=== PATIENT | male | born 1990 | race Caucasian/White ===

== ENCOUNTER → 2017-10-02 | Outpatient (CLI) | payer BC ==
--- NOTE | 2017-10-02 10:27 | CT ---
EXAMINATION TYPE: CT thoracic spine wo con DATE OF EXAM: 10/02/2017 COMPARISON: NONE HISTORY: Compression fracture CT DLP: 1260 mGycm Automated exposure control for dose reduction was used. FINDINGS: There is a compression deformity of T8 with approximately 30% loss of anterior vertebral stephanie dy height. No posterior wall displacement is evident. Findings appear to be old. No adjacent soft tis gabriela swelling is evident. There is slight exaggeration of thoracic kyphosis at this compression deform ity level. No focal disc herniations or significant disc bulge is evident. No spinal canal stenosis is evident. Incidental note is made of a consolidation and patchy infiltrate within the posterior medial right mi dlung. Correlate for an infectious etiology. Underlying mass is not excluded and follow-up to [facility] is recommended. IMPRESSION: 1. COMPRESSION DEFORMITY T8. MINIMAL SUPERIOR ENDPLATE COMPRESSION OF T9 MAY BE PRESENT. NO POSTERIOR WALL DISPLACEMENT OR SPINAL CANAL STENOSIS IS EVIDENT. FINDINGS APPEAR OLD. 2. PULMONARY INFILTRATE VERSUS UNDERLYING MASS POSTERIOR RIGHT LUNG. FOLLOW-UP EXAM IS RECOMMENDED.
== END | disposition home or self-care (01) ==
LOC: RADCTMAIN 08:07
PROVIDERS: ATTEND Family Medicine
DX: S22.060A Wedge compression fracture of T7-T8 vertebra, initial encounter for closed fracture (principal)
CPT/HCPCS: 72128

== ENCOUNTER → 2018-05-07 | Outpatient (CLI) | payer OTHER ==
--- NOTE | 2018-05-07 08:14 | CT ---
EXAMINATION TYPE: CT chest wo/w con DATE OF EXAM: 05/07/2018 COMPARISON: CT thoracic spine October 02, 2017 HISTORY: Swelling/mass/lump in neck per order. Prior abnormal CT per patient. CT DLP: 303.3 mGycm. Automated Exposure Control for Dose Reduction was Utilized. TECHNIQUE: CT scan of the thorax is performed following without and with IV Contrast, patient inject ed with 100 mL of Isovue 300. FINDINGS: LUNGS: There is interval resolution of nodular consolidation involving the superior aspect right lowe r lobe. No residual nodules or nodular consolidation is identified. Both lungs are currently clear wi thout pleural effusion or pneumothorax seen. Tracheobronchial tree is patent. MEDIASTINUM: There are no greater than 1 cm hilar or mediastinal lymph nodes. No cardiomegaly or si gnificant pericardial effusion is seen. OTHER: Nodular bilateral subareolar gynecomastia is incidentally seen. There is persistent exaggerate d thoracic kyphosis with mild to borderline moderate compression fractures and vacuum disc phenomenon with mild to moderate multilevel disc space narrowing from T4 through T9 level in the thoracic spine redemonstrated with most prominent height loss noted at T7 vertebra. No significant change from prio r CT thoracic spine study. No suspicious enhancement is noted. IMPRESSION: 1. Interval resolution of superior right lower lobe nodular consolidation. No residual nodules or mas ses.
== END | disposition home or self-care (01) ==
LOC: RADCTMAIN 06:42
PROVIDERS: ATTEND Psychiatry & Neurology Neurology
DX: R22.2 Localized swelling, mass and lump, trunk (principal)
CPT/HCPCS: 71270; Q9967

== ENCOUNTER 2019-02-04 10:42 | Emergency (ER) | payer OTHER ==
[2019-02-04 10:54] VITALS: BP 148/88; PULSE 93; RESP 18; TEMP 97.5
[2019-02-04] MEDS ORDERED: ACET/COD 300 MG/30 MG STARTER PACK 6 TAB BTL PO STA (11:20)
--- NOTE | 2019-02-04 11:20 | ED ---
ENT HPI - General Chief complaint: Dental/Oral Stated complaint: dental pain Source: patient Mode of arrival: ambulatory Limitations: no limitations - History of Present Illness Initial comments: 28-year-old male presents with right lower dental pain. Patient states it began this morning. Patient states he is concerned dental infection. Patient states he does have carious teeth in that area that have been filled. Patient denies any facial swelling just slightly below tongue denies fever flu like symptoms. Patient states he cannot tolerate the pain remaining review of systems negative. Upon arrival patient appears well no signs of acute distress. Denies a difficulty swallowing or breathing. - Related Data Home Medications Medication Instructions Recorded Confirmed Dextroamphetamine/Amphetamine 20 mg PO DAILY 02/04/19 02/04/19 [Adderall] clonazePAM [KlonoPIN] 0.5 mg PO BID PRN 02/04/19 02/04/19 Previous Rx's Medication Instructions Recorded Clindamycin [Cleocin] 450 mg PO Q8H 7 Days #63 capsule 02/04/19 Allergies Allergy/AdvReac Type Severity Reaction Status Date / Time venom-honey bee Allergy Swelling Verified 02/04/19 11:13 [bee venom (honey bee)] STEROID Allergy Swelling Uncoded 02/04/19 11:13 Review of Systems ROS Statement: Those systems with pertinent positive or pertinent negative responses have been documented in the HPI. ROS Other: All systems not noted in ROS Statement are negative. Past Medical History Past Medical History: No Reported History Additional Past Medical History / Comment(s): back pain History of Any Multi-Drug Resistant Organisms: None Reported Past Surgical History: Adenoidectomy, Tonsillectomy Additional Past Surgical History / Comment(s): BACK FRACTURE Past Psychological History: PTSD Smoking Status: Current every day smoker Past Alcohol Use History: None Reported Past Drug Use History: Marijuana General Exam - General Exam Comments Initial Comments: General: The patient is awake and alert, in no distress, and does not appear acutely ill. Eye: Pupils are equal, round and reactive to light, extra-ocular movements are intact. No nystagmus. There is normal conjunctiva bilaterally. No signs of icterus. Ears, nose, mouth and throat: There are moist mucous membranes and no oral lesions. Tender to percussion tooth #31 fluctuant abscess. Multiple carious teeth. No swelling below tongue or tenderness to palpation below tongue. No swelling below the angle of the mandible of the face. Cardiovascular: There is a regular rate and rhythm. No murmur, rub or gallop is appreciated. Respiratory: Lungs are clear to auscultation, respirations are non-labored, breath sounds are equal. No wheezes, stridor, rales, or rhonchi. Musculoskeletal: Normal ROM, no tenderness. Strength 5/5. Sensation intact. Pulses equal bilaterally 2+. Neurological: A&O x 3. CN II-XII intact grossly, There are no obvious motor or sensory deficits. Coordination appears grossly intact. Speech is normal. Skin: Skin is warm and dry and no rashes or lesions are noted. Psychiatric: Cooperative, appropriate mood & affect, normal judgment. Limitations: no limitations Course Vital Signs 02/04/19 02/04/19 10:49 11:37 Temperature 97.5 F L 97.5 F L Pulse Rate 93 93 Respiratory 18 18 Rate Blood Pressure 148/88 148/88 O2 Sat by Pulse 99 99 Oximetry Medical Decision Making - Medical Decision Making 1-year-old male presenting for dental pain. Patient be treated with antibiotics given starter pack for Tylenol No. 3 for pain management. Patient is instructed to follow-up with a dentist for extraction of the tooth. Patient is agreeable to plan. Return parameters discussed patient discharged. While discussed the case by attending provider Dr. Fisher. Disposition Clinical Impression: Pain, dental Disposition: HOME SELF-CARE Condition: Good Instructions (If sedation given, give patient instructions): Dental Abscess (ED) Additional Instructions: Please use medication as discussed. Please follow-up with dentist for extraction of tooth within next week. Please return to emergency room if the symptoms increase or worsen or for any other concerns, swelling below tongue swelling of the jaw or neck fevers like symptoms.. Prescriptions: Clindamycin [Cleocin] 450 mg PO Q8H 7 Days #63 capsule Is patient prescribed a controlled substance at d/c from ED?: No Referrals: Joseph Bey MD [Primary Care Provider] - 1-2 days Time of Disposition: :19
== END 2019-02-04 11:38 | disposition home or self-care (01) ==
LOC: EC 10:42
DX: K08.89 Other specified disorders of teeth and supporting structures (principal); K02.9 Dental caries, unspecified; F17.200 Nicotine dependence, unspecified, uncomplicated; Z79.899 Other long term (current) drug therapy; Z91.030 Bee allergy status; Z88.8 Allergy status to other drugs, medicaments and biological substances
CPT/HCPCS: 99282

== ENCOUNTER 2019-05-13 15:38 | Emergency (ER) | payer OTHER ==
[2019-05-13] MEDS ORDERED: KETOROLAC 30 MG/ML 1 ML VIAL IVP STA (16:28)
[2019-05-13] MEDS ORDERED: ONDANSETRON 4 MG/2 ML VIAL IVP STA (16:28)
[2019-05-13] MEDS ORDERED: SODIUM CHLORIDE 0.9% 1,000 ML IV STA (16:28)
[2019-05-13] MEDS ORDERED: MORPHINE SULFATE 4 MG/ML SYRINGE IV STA (16:28)
[2019-05-13 17:03] LABS: Basophils # (A) 0.1 k/uL (0-0.2); Basophils % (A) 1 %; Eosinophils # (A) 0.1 k/uL (0-0.7); Eosinophils % (A) 1 %; HCT 47.2 % (39.0-53.0); Lymphocytes # (A) 1.3 k/uL (1.0-4.8); Lymphocytes % (A) 8 %; MCH 32.8 pg (25.0-35.0); MCHC 33.9 g/dL (31.0-37.0); Monocytes # (A) 0.7 k/uL (0-1.0); Monocytes % (A) 4 %; Neutrophils # (A) 13.9 k/uL (1.3-7.7); Neutrophils % (A) 86 %; Platelet Count 299 k/uL (150-450); RBC 4.86 m/uL (4.30-5.90); WBC 16.1 k/uL (3.8-10.6)
--- NOTE | 2019-05-13 17:06 | ED ---
Abdominal Pain HPI - General Chief Complaint: Abdominal Pain Stated Complaint: severe pain on right side Time Seen by Provider: 05/13/19 16:17 Source: patient Mode of arrival: ambulatory Limitations: no limitations - History of Present Illness Initial Comments: Patient is a 29-year-old male presenting to emergency Department with complaints of a sudden onset right sided abdominal pain that started about 5 hours prior to arrival. Patient states he started having right lower quadrant pain and the pain has just been increasing over the past few hours. He states his pain when he moves around. He describes the pain as very sharp, 10/10, nonradiating. He states this is the worst pain is ever had in his abdomen. He denies history of abdominal surgeries, history of kidney stones. He states he had a normal bowel movement and urination today. He denies fever, nausea, vomiting, diarrhea. He denies cough or shortness of breath. Before onset of abdominal pain, he felt his normal self. He has no other pertinent past medical history and takes no medications. He denies any trauma. He has no other complaints at this time. Upon arrival to ER, his vital signs are stable. - Related Data Home Medications Medication Instructions Recorded Confirmed Dextroamphetamine/Amphetamine 20 mg PO DAILY 02/04/19 02/04/19 [Adderall] clonazePAM [KlonoPIN] 0.5 mg PO BID PRN 02/04/19 02/04/19 Previous Rx's Medication Instructions Recorded Clindamycin [Cleocin] 450 mg PO Q8H 7 Days #63 capsule 02/04/19 Ketorolac [Toradol] 10 mg PO Q8HR #15 tab 05/13/19 Ondansetron Odt [Zofran Odt] 4 mg PO Q8HR PRN #10 tab 05/13/19 Tamsulosin [Flomax] 0.4 mg PO DAILY #7 cap 05/13/19 Allergies Allergy/AdvReac Type Severity Reaction Status Date / Time venom-honey bee Allergy Swelling Verified 05/13/19 15:45 [bee venom (honey bee)] STEROID Allergy Swelling Uncoded 05/13/19 15:45 Review of Systems ROS Statement: Those systems with pertinent positive or pertinent negative responses have been documented in the HPI. ROS Other: All systems not noted in ROS Statement are negative. Past Medical History Past Medical History: No Reported History Additional Past Medical History / Comment(s): back pain History of Any Multi-Drug Resistant Organisms: None Reported Past Surgical History: Adenoidectomy, Tonsillectomy Additional Past Surgical History / Comment(s): BACK FRACTURE Past Psychological History: PTSD Smoking Status: Current every day smoker Past Alcohol Use History: None Reported Past Drug Use History: Marijuana General Exam - General Exam Comments Initial Comments: GENERAL: Patient appears pale, in mild distress secondary to pain. HEAD: Atraumatic, normocephalic. EYES: Pupils equal round and reactive to light, extraocular movements intact, sclera anicteric, conjunctiva are normal. ENT: TMs normal, nares patent, oropharynx clear without exudates. Moist mucous membranes. NECK: Normal range of motion, supple without lymphadenopathy or JVD. LUNGS: Breath sounds clear to auscultation bilaterally and equal. No wheezes rales or rhonchi. HEART: Regular rate and rhythm without murmurs, rubs or gallops. ABDOMEN: Severe tenderness to palpation in the right lower quadrant, positive guarding, positive rebound. Normoactive bowel sounds. No masses appreciated. : Deferred EXTREMITIES: Normal range of motion, no pitting or edema. No clubbing or cyanosis. NEUROLOGICAL: Normal speech, normal gait. PSYCH: Normal mood, normal affect. SKIN: Warm, Dry, normal turgor, no rashes or lesions noted. Limitations: no limitations Course Vital Signs 05/13/19 05/13/19 05/13/19 15:45 17:47 18:54 Temperature 97.5 F L 98.2 F Pulse Rate 85 79 81 Respiratory 18 18 16 Rate Blood Pressure 124/80 131/86 126/86 O2 Sat by Pulse 100 100 100 Oximetry Medical Decision Making - Medical Decision Making Patient is a 29-year-old male presenting with acute onset right lower quadrant pain for the past 6 hours. Vital signs are stable. Patient does have severe right lower side tenderness, positive rebound, positive guarding. No history of abdominal surgeries. Laboratory reveals slight leukocytosis at 16.1, likely reactive. Lactic acid is normal at 1.2. Urine shows a large amount of blood, no signs of infection. Computed tomography scan shows no acute abnormalities. She was given fluids, pain control. I discussed the findings with the patient. This is most likely a right-sided renal stone, appendicitis less likely. Patient will be given Toradol, Zofran, Flomax to go home with. He is in ag reement with this plan of care. Strict return parameters were discussed with the patient he verbalizes understanding. Case discussed with Dr. Fisher. - Lab Data Result diagrams: 05/13/19 16:47 05/13/19 16:47 Lab Results 05/13/19 05/13/19 05/13/19 Range/Units 16:47 16:47 16:47 WBC 16.1 H (3.8-10.6) k/uL RBC 4.86 (4.30-5.90) m/uL Hgb 16.0 (13.0-17.5) gm/dL Hct 47.2 (39.0-53.0) % MCV 97.0 (80.0-100.0) fL MCH 32.8 (25.0-35.0) pg MCHC 33.9 (31.0-37.0) g/dL RDW 12.0 (11.5-15.5) % Plt Count 299 (150-450) k/uL Neutrophils % 86 % Lymphocytes % 8 % Monocytes % 4 % Eosinophils % 1 % Basophils % 1 % Neutrophils # 13.9 H (1.3-7.7) k/uL Lymphocytes # 1.3 (1.0-4.8) k/uL Monocytes # 0.7 (0-1.0) k/uL Eosinophils # 0.1 (0-0.7) k/uL Basophils # 0.1 (0-0.2) k/uL Sodium 140 (137-145) mmol/L Potassium 4.2 (3.5-5.1) mmol/L Chloride 105 (98-107) mmol/L Carbon Dioxide 27 (22-30) mmol/L Anion Gap 8 mmol/L BUN 14 (9-20) mg/dL Creatinine 0.92 (0.66-1.25) mg/dL Est GFR (CKD-EPI)AfAm >90 (>60 ml/min/1.73 sqM) Est GFR (CKD-EPI)NonAf >90 (>60 ml/min/1.73 sqM) Glucose 140 H (74-99) mg/dL Plasma Lactic Acid Ifeanyi 1.2 (0.7-2.0) mmol/L Calcium 9.7 (8.4-10.2) mg/dL Total Bilirubin 0.4 (0.2-1.3) mg/dL AST 31 (17-59) U/L ALT 43 (4-49) U/L Alkaline Phosphatase 45 (38-126) U/L Total Protein 7.6 (6.3-8.2) g/dL Albumin 4.8 (3.5-5.0) g/dL Amylase 53 (30-110) U/L Lipase 35 (23-300) U/L Urine Color Urine Appearance (Clear) Urine pH (5.0-8.0) Ur Specific Buckner (1.001-1.035) Urine Protein (Negative) Urine Glucose (UA) (Negative) Urine Ketones (Negative) Urine Blood (Negative) Urine Nitrite (Negative) Urine Bilirubin (Negative) Urine Urobilinogen (<2.0) mg/dL Ur Leukocyte Esterase (Negative) Urine RBC (0-5) /hpf Urine WBC (0-5) /hpf Urine Mucus (None) /hpf 05/13/19 Range/Units 16:47 WBC (3.8-10.6) k/uL RBC (4.30-5.90) m/uL Hgb (13.0-17.5) gm/dL Hct (39.0-53.0) % MCV (80.0-100.0) fL MCH (25.0-35.0) pg MCHC (31.0-37.0) g/dL RDW (11.5-15.5) % Plt Count (150-450) k/uL Neutrophils % % Lymphocytes % % Monocytes % % Eosinophils % % Basophils % % Neutrophils # (1.3-7.7) k/uL Lymphocytes # (1.0-4.8) k/uL Monocytes # (0-1.0) k/uL Eosinophils # (0-0.7) k/uL Basophils # (0-0.2) k/uL Sodium (137-145) mmol/L Potassium (3.5-5.1) mmol/L Chloride (98-107) mmol/L Carbon Dioxide (22-30) mmol/L Anion Gap mmol/L BUN (9-20) mg/dL Creatinine (0.66-1.25) mg/dL Est GFR (CKD-EPI)AfAm (>60 ml/min/1.73 sqM) Est GFR (CKD-EPI)NonAf (>60 ml/min/1.73 sqM) Glucose (74-99) mg/dL Plasma Lactic Acid Ifeanyi (0.7-2.0) mmol/L Calcium (8.4-10.2) mg/dL Total Bilirubin (0.2-1.3) mg/dL AST (17-59) U/L ALT (4-49) U/L Alkaline Phosphatase (38-126) U/L Total Protein (6.3-8.2) g/dL Albumin (3.5-5.0) g/dL Amylase (30-110) U/L Lipase (23-300) U/L Urine Color Yellow Urine Appearance Clear (Clear) Urine pH 6.5 (5.0-8.0) Ur Specific Buckner 1.029 (1.001-1.035) Urine Protein 1+ H (Negative) Urine Glucose (UA) Negative (Negative) Urine Ketones Trace H (Negative) Urine Blood Large H (Negative) Urine Nitrite Negative (Negative) Urine Bilirubin Negative (Negative) Urine Urobilinogen 2.0 (<2.0) mg/dL Ur Leukocyte Esterase Small H (Negative) Urine RBC >182 H (0-5) /hpf Urine WBC 1 (0-5) /hpf Urine Mucus Few H (None) /hpf Disposition Clinical Impression: Abdominal pain, Right ureteral calculus Disposition: HOME SELF-CARE Condition: Stable Instructions (If sedation given, give patient instructions): Kidney Stones (ED) Additional Instructions: Please return to the Emergency Department if symptoms worsen or any other concerns. Take medications as prescribed. Follow up with PCP. Prescriptions: Tamsulosin [Flomax] 0.4 mg PO DAILY #7 cap Ketorolac [Toradol] 10 mg PO Q8HR #15 tab Ondansetron Odt [Zofran Odt] 4 mg PO Q8HR PRN #10 tab PRN Reason: Nausea Is patient prescribed a controlled substance at d/c from ED?: No Referrals: Joseph Bey MD [Primary Care Provider] - 1-2 days
[2019-05-13 17:22] LABS: ALT 43 U/L (4-49); AST 31 U/L (17-59); African American GFR (CKD) >90 (>60 ml/min/1.73 sqM); Albumin 4.8 g/dL (3.5-5.0); Alkaline Phosphatase 45 U/L (38-126); Amylase 53 U/L (30-110); Anion Gap 8 mmol/L; Blood Urea Nitrogen 14 mg/dL (9-20); Calcium 9.7 mg/dL (8.4-10.2); Carbon Dioxide 27 mmol/L (22-30); Chloride 105 mmol/L (98-107); Glucose 140 mg/dL (74-99); Non-African American GFR(CKD) >90 (>60 ml/min/1.73 sqM); Potassium 4.2 mmol/L (3.5-5.1); Sodium 140 mmol/L (137-145); Total Bilirubin 0.4 mg/dL (0.2-1.3); Total Protein 7.6 g/dL (6.3-8.2)
[2019-05-13] MEDS ORDERED: MORPHINE SULFATE 4 MG/ML SYRINGE IVP STA (17:37)
[2019-05-13 17:40] LABS: Appearance,Urine Clear (Clear); Bilirubin,Urine Negative (Negative); Blood,Urine Large (Negative); Color,Urine Yellow; Glucose,Urine (UA) Negative (Negative); Ketones,Urine Trace (Negative); Leukocyte Esterase,Urine Small (Negative); Mucus,Urine Few /hpf; Nitrite,Urine Negative (Negative); PH, Urine 6.5 (5.0-8.0); Protein,Urine 1+ (Negative); RBC,Urine >182 /hpf (0-5); Specific Gravity,Urine 1.029 (1.001-1.035); WBC,Urine 1 /hpf (0-5)
--- NOTE | 2019-05-13 17:58 | CT ---
EXAMINATION TYPE: CT abdomen pelvis w con DATE OF EXAM: 05/13/2019 COMPARISON: None HISTORY: Right sided pain. CT DLP: 676.8 mGycm Automated exposure control for dose reduction was used. CONTRAST: Performed with IV Contrast, patient injected with 100 mL of Isovue 300. Multiple axial sections were obtained from the diaphragm to the floor the pelvis with intravenous con trast Isovue 100 mL. FINDINGS: Lung bases are clear. There is no pleural effusion. Heart size is normal. Liver spleen stomach pancreas gallbladder appear normal. Bile ducts are not dilated. There is no adrenal mass. Kidneys show satisfactory contrast opacification. There is no hydronephrosi s. There is no retroperitoneal adenopathy. Bladder distends smoothly. There is no inguinal hernia. Th ere is no free fluid in the pelvis. There is L5 spondylolysis with 1 cm L5-S1 spondylolisthesis. There is no lumbar compression fracture. Bony pelvis appears intact. There is no mesenteric edema. There is no ascites or free air. There is no sign of a bowel obstructio n. Cecum is low in the pelvis. Appendix is not seen. There is no sign of thickened appendix. IMPRESSION: No sign of acute abdomen and pelvis. Appendix not seen. L5 spondylolysis with first-degree L5-S1 spon dylolisthesis.
[2019-05-13 18:55] VITALS: BP 126/86; PULSE 81; RESP 16; TEMP 98.2
== END 2019-05-13 18:56 | disposition home or self-care (01) ==
LOC: EC 15:38
DX: N20.1 Calculus of ureter (principal); D72.829 Elevated white blood cell count, unspecified; F17.200 Nicotine dependence, unspecified, uncomplicated; Z88.8 Allergy status to other drugs, medicaments and biological substances; Z91.030 Bee allergy status
CPT/HCPCS: 36415; 80053; 82150; 83605; 83690; 85025; 81001; 74177; 99284; 96374; 96375 ×2; 96376; 96361; J2270; J2405; J1885; Q9967

== ENCOUNTER 2019-05-21 14:37 | Emergency (ER) | payer OTHER ==
[2019-05-21 14:59] VITALS: BP 133/81; PULSE 113; RESP 16; TEMP 99.4
[2019-05-21] MEDS ORDERED: ACET/COD 300 MG/30 MG STARTER PACK 6 TAB BTL PO STA (15:22)
--- NOTE | 2019-05-21 15:23 | ED ---
ENT HPI - General Chief complaint: Dental/Oral Stated complaint: dental infection Time Seen by Provider: 05/21/19 14:58 Source: patient Mode of arrival: ambulatory Limitations: no limitations - History of Present Illness Initial comments: Patient is a 29-year-old male presenting to the emergency department with a chief complaint of dental pain. Patient states that he has multiple caries along with a fractured tooth #2. Patient states he has been seen a dentist more as a recently for multiple repairs. Patient reports the pain is not necessarily improving. Patient does report pain with mastication as the food makes contact with his teeth. Patient also reports a small growing mass in the left submandibular region near the mantle. Patient reports the region is very tender. He denies any fevers night sweats or chills. Patient reports he recently finished a 10 day course of Pen-Vee K that was prescribed to him by a dentist. - Related Data Home Medications Medication Instructions Recorded Confirmed Dextroamphetamine/Amphetamine 20 mg PO DAILY 02/04/19 02/04/19 [Adderall] clonazePAM [KlonoPIN] 0.5 mg PO BID PRN 02/04/19 02/04/19 Previous Rx's Medication Instructions Recorded Clindamycin [Cleocin] 450 mg PO Q8H 7 Days #63 capsule 02/04/19 Ketorolac [Toradol] 10 mg PO Q8HR #15 tab 05/13/19 Ondansetron Odt [Zofran Odt] 4 mg PO Q8HR PRN #10 tab 05/13/19 Tamsulosin [Flomax] 0.4 mg PO DAILY #7 cap 05/13/19 Clindamycin [Cleocin] 150 mg PO Q6H #40 capsule 05/21/19 Allergies Allergy/AdvReac Type Severity Reaction Status Date / Time venom-honey bee Allergy Swelling Verified 05/13/19 15:45 [bee venom (honey bee)] STEROID Allergy Swelling Uncoded 05/13/19 15:45 Review of Systems ROS Statement: Those systems with pertinent positive or pertinent negative responses have been documented in the HPI. ROS Other: All systems not noted in ROS Statement are negative. Past Medical History Past Medical History: No Reported History Additional Past Medical History / Comment(s): back pain History of Any Multi-Drug Resistant Organisms: None Reported Past Surgical History: Adenoidectomy, Tonsillectomy Additional Past Surgical History / Comment(s): BACK FRACTURE Past Psychological History: PTSD Smoking Status: Current every day smoker Past Alcohol Use History: None Reported Past Drug Use History: Marijuana General Exam Limitations: no limitations General appearance: alert, in no apparent distress Head exam: Present: atraumatic, normocephalic, normal inspection Eye exam: Present: normal appearance Pupils: Present: normal accommodation ENT exam: Present: normal exam, normal oropharynx (Fractured tooth #2. Multiple caries in the oral cavity. No signs of a periapical abscess. No signs of inflammation at this moment.), mucous membranes moist, TM's normal bilaterally Neck exam: Present: normal inspection, full ROM. Absent: lymphadenopathy Respiratory exam: Present: normal lung sounds bilaterally Cardiovascular Exam: Present: regular rate, normal rhythm, normal heart sounds Extremities exam: Present: normal inspection, full ROM Back exam: Present: normal inspection, full ROM Neurological exam: Present: alert, oriented X3 Psychiatric exam: Present: normal affect, normal mood Skin exam: Present: warm, dry, intact, normal color Course Vital Signs 05/21/19 14:57 Temperature 99.4 F Pulse Rate 113 H Respiratory 16 Rate Blood Pressure 133/81 O2 Sat by Pulse 99 Oximetry Medical Decision Making - Medical Decision Making Patient is a 29-year-old male presenting to emergency Department with a chief complaint of dental pain. On exam patient is a fractured tooth and multiple dental caries. Patient recently finished treatment with penicillin VK with minimal improvement of symptoms. Patient was given a Tylenol 3 starter pack. Patient will be started on clindamycin advised to follow back up with the dent ist. On exam patient does have what appears to be a small swelling on the left mandibular side near the mental that is tender with palpation. Chin advised to follow-up with an oral surgeon considering his dental pain is not improving and now he has developed a mass that is measuring approximately 1 cm 1 cm. No dysphagia, odynophagia, drooling or respiratory distress. No fever or chills Strict return parameters were thoroughly discussed with patient is understanding and agreeable. Case discussed with physician. Disposition Clinical Impression: Pain, dental, Fractured tooth Disposition: HOME SELF-CARE Condition: Stable Instructions (If sedation given, give patient instructions): Toothache (ED) Additional Instructions: Please follow up with an oral surgeon. Return to emergency department if symptoms worsen. Take medication as directed. Prescriptions: Clindamycin [Cleocin] 150 mg PO Q6H #40 capsule Is patient prescribed a controlled substance at d/c from ED?: No Referrals: Joseph Bey MD [Primary Care Provider] - 1-2 days Joni Madera DDS [STAFF PHYSICIAN] - 1-2 days Time of Disposition: 15:23
== END 2019-05-21 15:35 | disposition home or self-care (01) ==
LOC: EC 14:37
DX: S02.5XXA Fracture of tooth (traumatic), initial encounter for closed fracture (principal); K02.9 Dental caries, unspecified; K08.89 Other specified disorders of teeth and supporting structures; F43.10 Post-traumatic stress disorder, unspecified; F17.200 Nicotine dependence, unspecified, uncomplicated; Z88.8 Allergy status to other drugs, medicaments and biological substances; Z91.030 Bee allergy status; Z79.899 Other long term (current) drug therapy; X58.XXXA Exposure to other specified factors, initial encounter
CPT/HCPCS: 99283

== ENCOUNTER 2022-03-18 18:02 | Emergency (ER) | payer OTHER ==
[2022-03-18 18:07] VITALS: BP 132/77; PULSE 95; RESP 20; TEMP 98
--- NOTE | 2022-03-18 18:23 | ED ---
General Adult HPI - General Chief complaint: Extremity Injury, Lower Stated complaint: rt foot injury Time Seen by Provider: 03/18/22 18:09 Source: patient, RN notes reviewed Mode of arrival: ambulatory Limitations: no limitations - History of Present Illness Initial comments: Patient is a pleasant 31-year-old male presenting to the emergency Department with right fifth toe injury. Patient dropped a log on it yesterday. Patient does have discomfort since that time. Patient has noticed bruising. Pain increases with attempted ambulation and touch. No history of similar previous trauma. - Related Data Home Medications Medication Instructions Recorded Confirmed Dextroamphetamine/Amphetamine 20 mg PO DAILY 02/04/19 02/04/19 [Adderall] clonazePAM [KlonoPIN] 0.5 mg PO BID PRN 02/04/19 02/04/19 Previous Rx's Medication Instructions Recorded Clindamycin [Cleocin] 450 mg PO Q8H 7 Days #63 capsule 02/04/19 Ketorolac [Toradol] 10 mg PO Q8HR #15 tab 05/13/19 Ondansetron Odt [Zofran Odt] 4 mg PO Q8HR PRN #10 tab 05/13/19 Tamsulosin [Flomax] 0.4 mg PO DAILY #7 cap 05/13/19 Clindamycin [Cleocin] 150 mg PO Q6H #40 capsule 05/21/19 Allergies Allergy/AdvReac Type Severity Reaction Status Date / Time venom-honey bee Allergy Swelling Verified 05/13/19 15:45 [bee venom (honey bee)] STEROID Allergy Swelling Uncoded 05/13/19 15:45 Review of Systems ROS Statement: Those systems with pertinent positive or pertinent negative responses have been documented in the HPI. ROS Other: All systems not noted in ROS Statement are negative. Constitutional: Denies: fever Eyes: Denies: eye pain ENT: Denies: ear pain Respiratory: Denies: cough Cardiovascular: Denies: chest pain Endocrine: Denies: fatigue Gastrointestinal: Denies: abdominal pain Genitourinary: Denies: dysuria Musculoskeletal: Reports: as per HPI. Denies: back pain Skin: Reports: as per HPI Past Medical History Past Medical History: No Reported History Additional Past Medical History / Comment(s): back pain History of Any Multi-Drug Resistant Organisms: None Reported Past Surgical History: Adenoidectomy, Tonsillectomy Additional Past Surgical History / Comment(s): BACK FRACTURE Past Psychological History: PTSD Past Alcohol Use History: None Reported Past Drug Use History: Marijuana General Exam Limitations: no limitations General appearance: alert, in no apparent distress Head exam: Present: normocephalic Eye exam: Present: normal appearance Neck exam: Absent: tenderness Respiratory exam: Present: normal lung sounds bilaterally Cardiovascular Exam: Present: regular rate, normal rhythm GI/Abdominal exam: Present: soft. Absent: tenderness Extremities exam: Present: tenderness (Right fifth toe with ecchymosis. Sensation is intact. Cap refill less than 2 seconds) Neurological exam: Present: alert Psychiatric exam: Present: normal affect, normal mood Skin exam: Present: other (Ecchymosis right fifth toe) Course Vital Signs 03/18/22 18:05 Temperature 98 F Pulse Rate 95 Respiratory 20 Rate Blood Pressure 132/77 O2 Sat by Pulse 100 Oximetry Medical Decision Making - Medical Decision Making Patient reevaluated and updated. Fourth and fifth toes taped together. Patient will receive postoperative shoe. Patient does not want pain medication. - Radiology Data Interpreted by me: X-ray right foot has questionable hairline fracture of the fifth toe Disposition Clinical Impression: Toe injury Disposition: HOME SELF-CARE Condition: Stable Instructions (If sedation given, give patient instructions): Toe Fracture (ED) Additional Instructions: [id number] Tylenol or Motrin as needed. Ice to affected area. Please follow-up with primary care physician in the next couple days for recheck. Return for increased pain, swelling, worsening symptoms or other concerns. Is patient prescribed a controlled substance at d/c from ED?: No Referrals: Joseph Varela MD [STAFF PHYSICIAN] - 1-2 days Time of Disposition: 18:57
--- NOTE | 2022-03-18 18:39 | XR ---
EXAMINATION TYPE: XR foot complete RT DATE OF EXAM: 03/18/2022 COMPARISON: NONE HISTORY: Pain TECHNIQUE: 3 view FINDINGS: Metatarsals are intact. I see no fracture nor dislocation. The little toe is intact. Joint spaces are normal. IMPRESSION: Negative right foot exam. No fracture seen.
== END 2022-03-18 19:03 | disposition home or self-care (01) ==
LOC: EC 18:02
DX: S99.921A Unspecified injury of right foot, initial encounter (principal); F12.90 Cannabis use, unspecified, uncomplicated; Z91.030 Bee allergy status; Z88.8 Allergy status to other drugs, medicaments and biological substances; X58.XXXA Exposure to other specified factors, initial encounter
CPT/HCPCS: 99283

== ENCOUNTER 2024-06-16 16:49 | Emergency (ER) | payer OTHER ==
[2024-06-16 16:57] VITALS: RESP 18
--- NOTE | 2024-06-16 17:14 | ED ---
Back Pain HPI - General Chief Complaint: Back Pain/Injury Stated Complaint: Back Pain Time Seen by Provider: 06/16/24 17:02 Source: patient, RN notes reviewed Mode of arrival: ambulatory Limitations: no limitations - History of Present Illness Initial Comments: This is a 34-year-old male who presents to the emergency department for low back pain. States that it started after he tried to potato picker a wheelbarrow a couple of days ago. Pain is in the mid back and radiates around both sides and into the groin. Denies any loss of bowel/bladder control or saddle anesthesia. Does not believe the pain is worse on any particular side. He did try taking ibuprofen without any relief in symptoms. MD Complaint: back pain - Related Data Home Medications Medication Instructions Recorded Confirmed Dextroamphetamine/Amphetamine 20 mg PO DAILY 02/04/19 02/04/19 [Adderall] clonazePAM [KlonoPIN] 0.5 mg PO BID PRN 02/04/19 02/04/19 Previous Rx's Medication Instructions Recorded Clindamycin [Cleocin] 450 mg PO Q8H 7 Days #63 capsule 02/04/19 Ketorolac [Toradol] 10 mg PO Q8HR #15 tab 05/13/19 Ondansetron Odt [Zofran Odt] 4 mg PO Q8HR PRN #10 tab 05/13/19 Tamsulosin [Flomax] 0.4 mg PO DAILY #7 cap 05/13/19 Clindamycin [Cleocin] 150 mg PO Q6H #40 capsule 05/21/19 Cyclobenzaprine [Flexeril] 10 mg PO TID PRN #30 tab 06/16/24 Ketorolac [Toradol] 10 mg PO Q6HR PRN #15 tab 06/16/24 Lidocaine 5% Patch [Lidoderm 5% 1 patch TOPICAL DAILY PRN #30 patch 06/16/24 Patch] Allergies Allergy/AdvReac Type Severity Reaction Status Date / Time venom-honey bee Allergy Swelling Verified 06/16/24 16:56 [bee venom (honey bee)] Review of Systems ROS Statement: Those systems with pertinent positive or pertinent negative responses have been documented in the HPI. ROS Other: All systems not noted in ROS Statement are negative. Past Medical History Past Medical History: No Reported History Additional Past Medical History / Comment(s): back pain History of Any Multi-Drug Resistant Organisms: None Reported Past Surgical History: Adenoidectomy, Tonsillectomy Additional Past Surgical History / Comment(s): BACK FRACTURE Past Psychological History: PTSD Smoking Status: Current every day smoker Past Alcohol Use History: None Reported Past Drug Use History: Marijuana General Exam Limitations: no limitations General appearance: alert, in no apparent distress Head exam: Present: atraumatic, normocephalic, normal inspection Respiratory exam: Present: normal lung sounds bilaterally. Absent: respiratory distress, wheezes, rales, rhonchi, stridor Cardiovascular Exam: Present: regular rate, normal rhythm Back exam: Present: other (Tenderness to palpation over the mid to lower back) Neurological exam: Present: alert, oriented X3, CN II-XII intact Psychiatric exam: Present: normal affect, normal mood Skin exam: Present: warm, dry, intact, normal color. Absent: rash Course Vital Signs 06/16/24 06/16/24 16:53 18:22 Temperature 98.0 F 98 F Pulse Rate 97 88 Respiratory 18 18 Rate Blood Pressure 155/69 137/89 O2 Sat by Pulse 99 99 Oximetry Medical Decision Making - Medical Decision Making This is a 34-year-old male who presents to the emergency department for back pain. Was pt. sent in by a medical professional or institution? @ -No Did you speak to anyone other than the patient for history? @ -No Did you review nursing and triage notes? @ -Yes, and I agree, it is accurate with regards to the patient's symptoms. Were old charts reviewed? @ -No Differential Diagnosis? @ -Differential Back Pain: Strain, zoster, cauda equina syndrome, epidural abscess, vertebral osteomyelitis, discitis, fracture, subluxation, disc herniation, DJD, spinal stenosis, dissection, AAA, pancreatitis, peptic ulcer disease, pyelonephritis, kidney stone, this is not meant to be an all-inclusive list. EKG interpreted by me (3pts min.)? @ -Not obtained X-rays interpreted by me (1pt min.)? @ -X-ray of the lumbar spine obtained. My interpretation identifies no acute fractures. CT interpreted by me (1pt min.)? @ -Not obtained U/S interpreted by me (1pt. min.)? @ -Not obtained What testing was considered but not performed? (CT, X-rays, U/S, labs)? Why? @ -None What meds were considered but not given? Why? @ -None Did you discuss the management of the patient with other professionals? @ -No Did you reconcile home meds? @ -No Was smoking cessation discussed for >3mins.? @ -No Was critical care preformed (if so, how long)? @ -No Were there social determinants of health that impacted care today? How? (Homelessness, low income, unemployed, alcoholism, drug addiction, transportation, low edu. Level, literacy, decrease access to med. care, long term, rehab)? @ -No Was there de-escalation of care discussed even if they declined? (Discuss DNR or withdrawal of care, Hospice)? @ -No What co-morbidities impacted this encounter? (DM, HTN, Smoking, COPD, CAD, Cancer, CVA, Hep., AIDS, mental health diagnosis, sleep apnea, morbid obesity)? @ -None Was patient admitted / discharged? @ -Discharged. X-ray of the lumbar spine obtained revealing no acute fracture. He does have redemonstration of grade 1 anterolisthesis of L5 on S1 with bilateral pars defect and mild degenerative disc disease. Symptoms likely related to a lumbar strain. Pain was managed in the emergency department. Prescription for Toradol, Flexeril, and lidocaine patches provided. Patient discharged home in stable condition and advised to follow-up with his PCP. Case discussed with ED attending Dr. Bermeo. Return precautions reviewed in depth, the patient is instructed to return to the emergency department with any new, worsening, or concerning symptoms. Patient verbalized understanding. Undiagnosed new problem with uncertain prognosis? @ -None Drug Therapy requiring intensive monitoring for toxicity (Heparin, Nitro, Insulin, Cardizem)? @ -None Were any procedures done? @ -None Diagnosis/symptom? @ -Lumbar strain Acute, or Chronic, or Acute on Chronic? @ -Acute Uncomplicated (without systemic symptoms) or Complicated (systemic symptoms)? @ -Uncomplicated Side effects of treatment? @ -None Exacerbation, Progression, or Severe Exacerbation] @ -Not applicable Poses a threat to life or bodily function? @ -No - Radiology Data Radiology results: report reviewed, image reviewed Disposition Clinical Impression: Strain of lumbar region Disposition: HOME SELF-CARE Instructions (If sedation given, give patient instructions): Low Back Strain (ED), Acute Low Back Pain (ED) Additional Instructions: Return to the emergency department with any new, worsening, or concerning symptoms. Take the Toradol with Tylenol as needed for pain relief. If you choose to take the Toradol, do not take any other anti-inflammatories such as ibuprofen, take one or the other. Take the Flexeril up to 3 times daily as needed for pain relief. However, be aware that this may make you drowsy. You can also apply the lidocaine patches daily. Follow up with your primary care provider in 1-2 days. Prescriptions: Cyclobenzaprine [Flexeril] 10 mg PO TID PRN #30 tab PRN Reason: Pain Lidocaine 5% Patch [Lidoderm 5% Patch] 1 patch TOPICAL DAILY PRN #30 patch PRN Reason: Pain Ketorolac [Toradol] 10 mg PO Q6HR PRN #15 tab PRN Reason: Pain Is patient prescribed a controlled substance at d/c from ED?: No Referrals: None,Stated [Primary Care Provider] - 1-2 days Time of Disposition: 18:06
--- NOTE | 2024-06-16 17:26 | XR ---
EXAMINATION TYPE: XR lumbar spine 2 or 3V DATE OF EXAM: 06/16/2024 CLINICAL HISTORY: pain TECHNIQUE: Three views of the lumbar spine are submitted. COMPARISON: CT abdomen and pelvis 05/13/2019, lumbar spine radiograph 11/16/2014 FINDINGS: There are 5 lumbar type vertebral bodies identified. No acute fracture. Redemonstration of grade 1 an terolisthesis of L5 on S1 with bilateral pars defect. There is mild degenerative disc disease at this level. Vertebral body heights are within normal limits. The remaining disc spaces appear within nor mal limits. The overlying soft tissue appears unremarkable. IMPRESSION: 1. No acute fracture. 2. Redemonstration of grade 1 anterolisthesis of L5 on S1 with bilateral pars defects and mild degen erative disc disease at this level. [facility], , 06/16/2024 5:24 PM
[2024-06-16] MEDS: HYDROmorphone 1 MG/ML 1 ML SYRINGE IM STA (17:34)
[2024-06-16] MEDS: KETOROLAC 15 MG/ML 1 ML VIAL IM STA (17:34)
[2024-06-16] MEDS: LIDOCAINE 4% PATCH TOPICAL ONE (17:35)
[2024-06-16] MEDS: CYCLOBENZAPRINE 10 MG TAB PO STA (17:35)
[2024-06-16] MEDS: ACET/COD 300 MG/30 MG STARTER PACK 6 TAB BTL PO STA (18:17)
[2024-06-16 18:23] VITALS: BP 137/89; PULSE 88; TEMP 98
== END 2024-06-16 18:22 | disposition home or self-care (01) ==
LOC: EC 16:49
DX: S39.012A Strain of muscle, fascia and tendon of lower back, initial encounter (principal); F17.200 Nicotine dependence, unspecified, uncomplicated; Z91.030 Bee allergy status; X58.XXXA Exposure to other specified factors, initial encounter
CPT/HCPCS: 99283; 96372 ×2; 72100; J1171; J1885